=== PATIENT | female | born 1950 | race African-American/Black ===

== ENCOUNTER 2016-12-06 01:05 | Emergency (ER) | payer MEDICARE ==
[~2016-12-06] VITALS: Ht 175.3 cm; Wt 90.0 kg
[2016-12-06] MEDS ORDERED: FLEXERIL PO (02:25)
[2016-12-06] MEDS ORDERED: ULTRAM50 M1 PO (02:25)
[2016-12-06 02:50] VITALS: BP 164/95
== END 2016-12-06 02:50 | disposition home or self-care (01) ==
LOC: ED 01:05
DX: M19.041 Primary osteoarthritis, right hand (principal); M79.601 Pain in right arm; M25.431 Effusion, right wrist

== ENCOUNTER 2018-05-29 03:02 | Emergency (ER) | payer MEDICARE ==
[~2018-05-29] VITALS: Ht 175.3 cm; Wt 83.6 kg
[~2018-05-29 03:02] MED LIST: CYCLOBENZAPRINE10 MG PO; FISH OIL1000 MG PO; FLEXERIL PO; GLUCOSAMI12 PO; LASIX 40 MG TAB40 MG PO; LOSARTAN POT100 MG PO; MOBIC7.5 M1 PO; OXYBUTYNIN5 M1 PO; TRAMADOL HCL50 MG PO; ULTRAM50 M1 PO; VITAMIN B-12100 MCG PO; VOLTAREN1%GEL TOP
[2018-05-29] MEDS ORDERED: LORTAB 1010 MG PO (03:59)
[2018-05-29 04:15] VITALS: BP 156/86
== END 2018-05-29 04:17 | disposition home or self-care (01) ==
LOC: ED 03:02
DX: M76.9 Unspecified enthesopathy, lower limb, excluding foot (principal); I10 Essential (primary) hypertension; F17.210 Nicotine dependence, cigarettes, uncomplicated; Z96.653 Presence of artificial knee joint, bilateral

== ENCOUNTER 2019-11-17 06:36 | Day surgery (SDC) | payer MEDICARE ==
[~2019-11-17] VITALS: Ht 175.3 cm; Wt 92.5 kg
[~2019-11-17 06:36] MED LIST changes: +BUSPIRONE5 MG PO; +LORTAB 1010 MG PO; +METHOCARBAMOL500 MG PO; +MULTI VIT PO; +MULTIVITAMIN PL1 CHW PO; +NORVASC5 M1 PO; +POTASSIUM CHLO10 MEQ PO; +PROAIR DIG108 MCG/AC IN
[2019-11-17 09:19] VITALS: BP 131/81
== END 2019-11-17 09:38 | disposition home or self-care (01) ==
LOC: ENDO 06:36 → ORM 09:30 → ENDO 09:30
PROVIDERS: ATTEND Surgery
PROC: 0DBH8ZX Excision of Cecum, Via Natural or Artificial Opening Endoscopic, Diagnostic (ICD-10-PCS; principal; 2019-11-17)
PROC: 0DBL8ZX Excision of Transverse Colon, Via Natural or Artificial Opening Endoscopic, Diagnostic (ICD-10-PCS; 2019-11-17)
DX: D12.3 Benign neoplasm of transverse colon (principal); K50.10 Crohn's disease of large intestine without complications; K64.8 Other hemorrhoids; I10 Essential (primary) hypertension; F17.290 Nicotine dependence, other tobacco product, uncomplicated; Z80.9 Family history of malignant neoplasm, unspecified; Z11.59 Encounter for screening for other viral diseases

== ENCOUNTER 2020-03-05 14:34 | Emergency (ER) | payer MEDICARE ==
[~2020-03-05] VITALS: Ht 175.3 cm; Wt 92.0 kg
[2020-03-05 15:08] LABS: URINE BILIRUBIN - DIPSTICK NEGATIVE (NEGATIVE); URINE BLOOD DIPSTICK NEGATIVE (NEGATIVE); URINE COLOR YELLOW; URINE GLUCOSE - DIPSTICK NEGATIVE (NEGATIVE); URINE KETONE NEGATIVE (NEGATIVE); URINE NITRITE - DIPSTICK NEGATIVE (Negative); URINE PH 7.5 (4.5-8.0); URINE PROTEIN - DIPSTICK TRACE mg/dL (NEG-TRACE); URINE UROBILINOGEN - DIPSTICK 0.2 E.U./dL (0.2)
[2020-03-05 15:14] LABS: URINE BACTERIA FEW hpf; URINE LEUK ESTERASE SMALL (NEGATIVE); URINE RBC 0-2 RBC/hpf (0-5); URINE SQUAMOUS EPITHELIAL CELL FEW EPI/hpf (0-FEW)
[2020-03-05 15:22] LABS: HEMATOCRIT 35.6 % (37.0-47.0); HEMOGLOBIN 11.7 g/dl (12.0-16.0); IMMATURE GRANULOCYTES 0.2 % (0.0-5.0); MEAN CELL VOLUME 93.4 fL CALC (80.0-100.0); MEAN CORPUSCULAR HGB 30.7 pG CALC (26.0-32.0); MEAN CORPUSCULAR HGB CONC 32.9 g/dL CAL (32.0-36.0); NEUT# 1.58 thou/uL (2.00-7.15); RED BLOOD COUNT 3.81 mill/uL (4.20-5.60); RED CELL DISTRI WIDTH 13.6 % (11.5-15.5)
[2020-03-05 15:45] LABS: ALBUMIN 4.1 g/dL (3.2-5.0); ALKALINE PHOSPHATASE 72 u/l (38-126); BILIRUBIN, TOTAL 0.4 mg/dL (0.0-1.4); BUN 15 mg/dL (8-23); BUN/CREATININE RATIO 12 (12-20 (CALC)); CARBON DIOXIDE 32 mmol/l (22-30); CHLORIDE 102 mmol/l (95-108); CREATININE 1.3 mg/dL (0.5-1.0); GFR 41 ML/MIN (>=60 (CALC)); GFR FOR AFR.AMER. 49 ML/MIN (>=60 (CALC)); LIPASE 120 u/l (23-300); SGOT/AST 23 u/l (9-36); SODIUM 139 mmol/l (137-146); TOTAL PROTEIN 7.6 g/dL (6.3-8.2)
[2020-03-05 15:54] LABS: ANION GAP 10 (6-22 (CALC)); POTASSIUM 4.6 mmol/l (3.5-5.1)
[2020-03-05 17:14] VITALS: BP 129/87
[2020-03-05] MEDS ORDERED: KEFLEX500 M1 PO (17:16)
== END 2020-03-05 17:25 | disposition home or self-care (01) ==
LOC: ED 14:34
DX: R07.89 Other chest pain (principal); L29.9 Pruritus, unspecified; I10 Essential (primary) hypertension

== ENCOUNTER 2021-12-17 22:04 | Emergency (ER) | payer MEDICARE ==
[~2021-12-17] VITALS: Ht 175.3 cm; Wt 103.0 kg
[~2021-12-17 22:04] MED LIST changes: +B121000 MC1 PO; +BACLOFEN20 MG PO; +COZAAR100 MG PO; +KEFLEX500 M1 PO
[2021-12-17 22:13] VITALS: BP 135/85
[2021-12-17 22:33] VITALS: BP 130/87
[2021-12-17 22:49] LABS: HEMATOCRIT 35.6 % (37.0-47.0); HEMOGLOBIN 11.6 g/dl (12.0-16.0); IMMATURE GRANULOCYTES 0.2 % (0.0-5.0); MEAN CELL VOLUME 94.7 fL CALC (80.0-100.0); MEAN CORPUSCULAR HGB 30.9 pG CALC (26.0-32.0); MEAN CORPUSCULAR HGB CONC 32.6 g/dL CAL (32.0-36.0); NEUT# 3.87 thou/uL (2.00-7.15); RED BLOOD COUNT 3.76 mill/uL (4.20-5.60); RED CELL DISTRI WIDTH 13.5 % (11.5-15.5)
[2021-12-17 23:01] VITALS: BP 96/79
[2021-12-17 23:07] LABS: ALBUMIN 4.4 g/dL (3.2-5.0); ALKALINE PHOSPHATASE 98 u/l (38-126); ANION GAP 10 (6-22 (CALC)); BILIRUBIN, TOTAL 0.4 mg/dL (0.0-1.4); BUN 13 mg/dL (8-23); BUN/CREATININE RATIO 10 (12-20 (CALC)); CARBON DIOXIDE 30 mmol/l (22-30); CHLORIDE 104 mmol/l (95-108); CREATININE 1.4 mg/dL (0.5-1.0); GFR FOR AFR.AMER. 45 ML/MIN (>=60 (CALC)); GFR OTHER RACES 37 ML/MIN (>=60 (CALC)); POTASSIUM 4.1 mmol/l (3.5-5.1); SGOT/AST 42 u/l (9-36); SODIUM 139 mmol/l (137-146); TOTAL PROTEIN 8.5 g/dL (6.3-8.2)
[2021-12-17 23:19] LABS: MYOGLOBIN 144 ng/mL (0 - 62)
[2021-12-18 01:10] LABS: URINE BILIRUBIN - DIPSTICK NEGATIVE (NEGATIVE); URINE BLOOD DIPSTICK NEGATIVE (NEGATIVE); URINE COLOR YELLOW; URINE GLUCOSE - DIPSTICK NEGATIVE (NEGATIVE); URINE KETONE NEGATIVE (NEGATIVE); URINE LEUK ESTERASE NEGATIVE (NEGATIVE); URINE PROTEIN - DIPSTICK NEGATIVE (NEG-TRACE); URINE SPECIFIC GRAVITY <=1.005; URINE UROBILINOGEN - DIPSTICK 0.2 E.U./dL (0.2)
[2021-12-18 01:16] LABS: URINE NITRITE - DIPSTICK NEGATIVE (Negative)
[2021-12-18 01:30] VITALS: BP 96/79
== END 2021-12-18 01:45 | disposition home or self-care (01) ==
LOC: ED 22:04
PROVIDERS: Family Medicine
DX: N17.9 Acute kidney failure, unspecified (principal); R42 Dizziness and giddiness; I10 Essential (primary) hypertension; Z20.822 Contact with and (suspected) exposure to COVID-19

== ENCOUNTER 2022-05-25 01:23 | Emergency (ER) | payer MEDICARE ==
[~2022-05-25] VITALS: Ht 175.3 cm; Wt 103.0 kg
[2022-05-25] VITALS (8 sets, daily range): BP systolic 134–177; BP diastolic 96–119
[~2022-05-25 01:23] MED LIST changes: +BUSPAR10 M1 PO; -BUSPIRONE5 MG PO
[2022-05-25 02:27] LABS: ALBUMIN 4.2 g/dL (3.2-5.0); ALKALINE PHOSPHATASE 84 u/l (38-126); AMYLASE 68 u/l (30-110); BUN 16 mg/dL (8-23); BUN/CREATININE RATIO 14 (12-20 (CALC)); CARBON DIOXIDE 30 mmol/l (22-30); CHLORIDE 105 mmol/l (95-108); CREATININE 1.2 mg/dL (0.5-1.0); GFR FOR AFR.AMER. 54 ML/MIN (>=60 (CALC)); GFR OTHER RACES 44 ML/MIN (>=60 (CALC)); LIPASE 155 u/l (23-300); SGOT/AST 37 u/l (9-36); SODIUM 142 mmol/l (137-146); TOTAL PROTEIN 7.8 g/dL (6.3-8.2)
[2022-05-25 02:31] LABS: BASO% 0.2 % (0-3); EOS% 2.7 % (0-8); HEMATOCRIT 34.9 % (37.0-47.0); HEMOGLOBIN 11.9 g/dl (12.0-16.0); LYMPH% 59.2 % (15-41); MEAN CELL VOLUME 92.3 fL CALC (80.0-100.0); MEAN CORPUSCULAR HGB 31.5 pG CALC (26.0-32.0); MEAN CORPUSCULAR HGB CONC 34.1 g/dL CAL (32.0-36.0); MONO% 9.2 % (2-13); NEUT# 1.49 thou/uL (2.00-7.15); NEUT% 28.7 % (42-76); RED BLOOD COUNT 3.78 mill/uL (4.20-5.60); RED CELL DISTRI WIDTH 13.3 % (11.5-15.5)
[2022-05-25 02:32] LABS: ANION GAP 11 (6-22 (CALC)); BILIRUBIN, TOTAL 0.2 mg/dL (0.0-1.4); POTASSIUM 3.7 mmol/l (3.5-5.1)
[2022-05-25] MEDS ORDERED: GABAPENTIN100 MG PO (02:52)
[2022-05-25] MEDS ORDERED: MAGNESIUM500 M1 PO (02:53)
[2022-05-25] MEDS ORDERED: LIPITOR10 M1 PO (02:53)
[2022-05-25] MEDS ORDERED: CENTRUM WOMEN1 TAB PO (02:55)
[2022-05-25] MEDS ORDERED: D31000 UNI1 PO (02:56)
[2022-05-25] MEDS ORDERED: DILTIAZEM60 MG PO (02:59)
[2022-05-25] MEDS ORDERED: CYCLOBENZAPRINE10 MG PO (02:59)
[2022-05-25 03:33] LABS: URINE BILIRUBIN - DIPSTICK NEGATIVE (NEGATIVE); URINE BLOOD DIPSTICK NEGATIVE (NEGATIVE); URINE COLOR YELLOW; URINE GLUCOSE - DIPSTICK NEGATIVE (NEGATIVE); URINE KETONE NEGATIVE (NEGATIVE); URINE LEUK ESTERASE TRACE (NEGATIVE); URINE PROTEIN - DIPSTICK NEGATIVE (NEG-TRACE); URINE UROBILINOGEN - DIPSTICK 0.2 E.U./dL (0.2)
[2022-05-25 03:37] LABS: URINE NITRITE - DIPSTICK NEGATIVE (Negative)
[2022-05-25] MEDS ORDERED: ONDANSETRON4 MG PO (04:54)
[2022-05-25] MEDS ORDERED: ULTRAM50 MG PO (04:54)
[2022-05-25] MEDS ORDERED: EQ OMEPRAZOLE20 MG PO (04:54)
== END 2022-05-25 05:06 | disposition home or self-care (01) ==
LOC: ED 01:23
PROVIDERS: Emergency Medicine
DX: K29.70 Gastritis, unspecified, without bleeding (principal); I10 Essential (primary) hypertension; K21.9 Gastro-esophageal reflux disease without esophagitis; Z20.822 Contact with and (suspected) exposure to COVID-19
CPT/HCPCS: Q9967

== ENCOUNTER 2022-12-13 13:45 | Emergency (ER) | payer MEDICARE ==
[~2022-12-13] VITALS: Ht 175.3 cm; Wt 86.0 kg
[~2022-12-13 13:45] MED LIST changes: +CENTRUM WOMEN1 TAB PO; +D31000 UNI1 PO; +DILTIAZEM60 MG PO; +EQ OMEPRAZOLE20 MG PO; +GABAPENTIN100 MG PO; +LIPITOR10 M1 PO; +MAGNESIUM500 M1 PO; +METRONIDAZOLE500 MG PO; +ONDANSETRON4 MG PO; +ULTRAM50 MG PO
[2022-12-13] MEDS ORDERED: NAPROXEN500 MG PO (15:25)
[2022-12-13] MEDS ORDERED: METHOCARBAMOL500 MG PO (15:25)
[2022-12-13 16:15] VITALS: BP 167/108
== END 2022-12-13 16:15 | disposition home or self-care (01) ==
LOC: ED 13:45
DX: S70.11XA Contusion of right thigh, initial encounter (principal); S50.01XA Contusion of right elbow, initial encounter; I10 Essential (primary) hypertension; W01.0XXA Fall on same level from slipping, tripping and stumbling without subsequent striking against object, initial encounter; Z96.653 Presence of artificial knee joint, bilateral; Z96.641 Presence of right artificial hip joint

== ENCOUNTER 2023-05-15 21:58 | Emergency (ER) | payer MEDICARE ==
[~2023-05-15] VITALS: Ht 175.3 cm; Wt 99.0 kg
[~2023-05-15 21:58] MED LIST changes: +NAPROXEN500 MG PO
[2023-05-15] MEDS ORDERED: POLYMYXIN B SUL1 SOL OD ×2 (22:29→22:42)
[2023-05-15] MEDS ORDERED: LISINOPRIL20 M1 PO (22:39)
[2023-05-15] MEDS ORDERED: METFORMIN HCL500 M1 PO (22:39)
[2023-05-15] MEDS ORDERED: ATORVASTATIN CA10 MG PO (22:40)
[2023-05-15] MEDS ORDERED: OMEPRAZOLE DR40 MG PO (22:41)
[2023-05-15 23:15] VITALS: BP 135/87
== END 2023-05-15 23:15 | disposition home or self-care (01) ==
LOC: ED 21:58
DX: H10.11 Acute atopic conjunctivitis, right eye (principal); I10 Essential (primary) hypertension

== ENCOUNTER 2023-07-04 16:16 | Observation (INO) | payer MEDICARE ==
[~2023-07-04] VITALS: Ht 175.3 cm; Wt 95.2 kg
[~2023-07-04 16:16] MED LIST changes: +ATORVASTATIN CA10 MG PO; +LISINOPRIL20 M1 PO; +METFORMIN HCL500 M1 PO; +OMEPRAZOLE DR40 MG PO; +POLYMYXIN B SUL1 SOL OD
--- NOTE | 2023-07-04 16:16 | NUR ---
PATIENT ARRIVED TO ER VIA EMS. PATIENT AWAKE, ALERT AND STABLE. NO DISTRESS NOTED. PHYSICIAN AT BEDSIDE.
[2023-07-04] MEDS ORDERED: SODIUM CHLORIDE 0.9% 1,000 ML IV ONE (16:25)
[2023-07-04 16:45] LABS: BASO% 0.2 % (0-3); HEMATOCRIT 32.7 % (37.0-47.0); HEMOGLOBIN 10.8 g/dl (12.0-16.0); IMMATURE GRANULOCYTES 0.2 % (0.0-5.0); LYMPH% 38.5 % (15-41); MEAN CELL VOLUME 92.9 fL CALC (80.0-100.0); MEAN CORPUSCULAR HGB 30.7 pG CALC (26.0-32.0); MONO% 10.2 % (2-13); NEUT# 2.88 thou/uL (2.00-7.15); NEUT% 49.9 % (42-76); RED BLOOD COUNT 3.52 mill/uL (4.20-5.60); RED CELL DISTRI WIDTH 13.2 % (11.5-15.5)
--- NOTE | 2023-07-04 16:52 | NUR ---
IN ROOM TO START I/V FLUIDS PER EMAR, PT VSS, NAD NOTED, CALL LIGHT IN REACH, FAMILY AT BEDSIDE.
[2023-07-04 17:02] LABS: ALKALINE PHOSPHATASE 86 u/l (38-126); ANION GAP 9 (6-22 (CALC)); BILIRUBIN, TOTAL 0.5 mg/dL (0.02-1.3); BUN 14 mg/dL (8-23); CARBON DIOXIDE 29 mmol/l (22-30); CHLORIDE 106 mmol/l (95-108); GFR FOR AFR.AMER. 28 ML/MIN (>=60 (CALC)); GFR OTHER RACES 23 ML/MIN (>=60 (CALC)); POTASSIUM 3.4 mmol/l (3.5-5.1); SGOT/AST 28 u/l (9-36); SODIUM 140 mmol/l (137-146); TOTAL PROTEIN 7.1 g/dL (6.3-8.2)
[2023-07-04 17:06] LABS: BUN/CREATININE RATIO 7 (12-20 (CALC)); CREATININE 2.1 mg/dL (0.5-1.0)
--- NOTE | 2023-07-04 18:00 | NUR ---
Reassessment of patient completed. No distress noted. VSS, VOICED NO NEEDS AT THIS TIME.
[2023-07-04 18:25] LABS: URINE BILIRUBIN - DIPSTICK Negative (NEGATIVE); URINE BLOOD DIPSTICK Negative (NEGATIVE); URINE GLUCOSE - DIPSTICK Negative (NEGATIVE); URINE KETONE Negative (NEGATIVE); URINE NITRITE - DIPSTICK Negative (Negative); URINE PROTEIN - DIPSTICK 30 mg/dL (NEG-TRACE); URINE SPECIFIC GRAVITY 1.015; URINE UROBILINOGEN - DIPSTICK 0.2 E.U./dL (0.2)
[2023-07-04 18:26] LABS: URINE COLOR Dark yellow; URINE LEUK ESTERASE Small (NEGATIVE)
[2023-07-04 18:33] LABS: URINE BACTERIA FEW hpf; URINE HYALINE CAST FEW lpf (NONE-RARE)
[2023-07-04] MEDS ORDERED: ACETAMINOPHEN 325 MG/TAB PO PRN (18:45)
[2023-07-04] MEDS ORDERED: MAGNESIUM HYDROXIDE 30 ML UDC PO PRN (18:45)
[2023-07-04] MEDS ORDERED: SODIUM CHLORIDE 0.9% 1,000 ML IV PRN (18:45)
[2023-07-04] MEDS ORDERED: BACLOFEN20 MG PO (18:48)
[2023-07-04] MEDS ORDERED: LASIX 20 MG TAB20 MG PO (18:49)
[2023-07-04] MEDS ORDERED: OXYBUTYNIN CHLOR5 M2 PO (18:50)
[2023-07-04] MEDS ORDERED: DILTIAZEM HCL120 MG PO (18:51)
[2023-07-04] MEDS ORDERED: GABAPENTIN300 M2 PO (18:52)
[2023-07-04] MEDS ORDERED: POT CHLORIDE10 ME5 PO (18:53)
--- NOTE | 2023-07-04 19:00 | NUR ---
REPORT RECEIVED FROM BETHANIE MCHUGH AND CARE RESUMED BY THIS NURSE AT THIS TIME. PT AWAITING A RM ASSIGNMENT AND ADMISSION TO MED SURG. CALL LIGHT WITHIN REACH.
--- NOTE | 2023-07-04 19:13 | NUR ---
REPORT GIVEN TO ABSTRACT WRITER, MEAL PROVIDED TO PT, PT VSS, NAD NOTED, CALL LIGHT IN REACH.
[2023-07-04 20:00] VITALS: BP 115/71
--- NOTE | 2023-07-04 20:21 | NUR ---
PT RESTING IN RM AWAITING ADMISSION TO MED SURG. CALL LIGHT WITHIN REACH AND PT HAS NO NEEDS OR CONCERNS.
[2023-07-04 20:31] VITALS: BP 121/76
[2023-07-04 21:00] VITALS: BP 134/92
[2023-07-04] MEDS ORDERED: ENOXAPARIN SODIUM 40 MG/0.4 ML SYR SC SCH (21:00)
[2023-07-04 21:30] VITALS: BP 115/81
--- NOTE | 2023-07-04 21:41 | NUR ---
REPORT GIVEN TO KELLIE MCHUHG AT THIS TIME. PT AWAITING TRANSPORT TO [facility] ON MED SURG. CALL LIGHT WITHIN REACH.
[2023-07-04 22:00] VITALS: BP 132/83
--- NOTE | 2023-07-04 22:43 | NUR ---
Admission Note Report Given to: KELLIE MCHUGH Transported by: X Wheelchair Stretcher Transported with: X Nurse Transporter X Patent IV O2 X Diabetes Territory Manager Location: ICU X [facility]
--- NOTE | 2023-07-04 22:50 | NUR ---
PT ARRIVED FROM THE ER TO [facility] IN WHEELCHAIR. PT ABLE TO AMBULATE WITHOUT ANY ISSUES. NO DISTRESS NOTED DURING ASSESSMENT. VS WNL ON RA. IV SITE CHEKCED AND FLUSHED. INSTRUCTIONS GIVEN ON HOW TO USE CALL LIGHT AND WITHIN REACH. PLAN OF CARE EXPLAINED.
[2023-07-04 23:20] VITALS: BP 136/65
--- NOTE | 2023-07-05 01:00 | NUR ---
PT RESTING NO DISTRESS NOTED ON EXAM. CALL LIGHT WITHIN REACH. PLAN OF CARE ONGOING.
--- NOTE | 2023-07-05 04:36 | NUR ---
PT SLEEPING NO DISTRESS NOTED ON EXAM. CALL LIGHT WITHIN REACH. PLAN OF CARE ONGOING.
[2023-07-05 04:45] LABS: BASO% 0.3 % (0-3); EOS% 1.7 % (0-8); HEMATOCRIT 30.8 % (37.0-47.0); HEMOGLOBIN 10.3 g/dl (12.0-16.0); LYMPH% 46.1 % (15-41); MEAN CELL VOLUME 92.8 fL CALC (80.0-100.0); MEAN CORPUSCULAR HGB CONC 33.4 g/dL CAL (32.0-36.0); MONO% 8.8 % (2-13); NEUT# 2.59 thou/uL (2.00-7.15); NEUT% 43.1 % (42-76); RED BLOOD COUNT 3.32 mill/uL (4.20-5.60); RED CELL DISTRI WIDTH 13.3 % (11.5-15.5)
[2023-07-05 04:52] VITALS: BP 123/66
[2023-07-05 04:54] LABS: CREATININE 1.2 mg/dL (0.5-1.0); MAGNESIUM 1.8 mg/dL (1.6-2.3); POTASSIUM 3.6 mmol/l (3.5-5.1)
[2023-07-05 07:20] VITALS: BP 119/77
--- NOTE | 2023-07-05 08:00 | NUR ---
pt awake sitting at the side of the bed; no apparent distress noted; pt offers no complaints; assessment completed at this time; pt alert and oriented; pt denies pain; no n/v noted; resp even and unlabored; lungs clear; skin color wnl; hr reg; strong pulses; no edema noted; tele monitor intact; abd soft with bs present; no bm noted per contract technical writer; no urine to inspect at this time; #18 ems patent to rac with ivf infusing without complication; no redness or edema noted at site; call light within reach; will continue to monitor
--- NOTE | 2023-07-05 10:38 | NUR ---
pt iv noted dislodged; became stuck under iv; catheter tip intact; will await MD rounds (questionable dc) prior to restarting;
[2023-07-05 10:44] VITALS: BP 158/84
[2023-07-05] MEDS ORDERED: OMNICEF300 MG PO (11:35)
--- NOTE | 2023-07-05 12:29 | NUR ---
awake sitting at the side of the bed eating dinner; awaiting discharge; offers no complaints; call light within reach; will continue to monitor
--- NOTE | 2023-07-05 12:58 | NUR ---
Discharge instructions given. Patient verbalizes understanding of same. Discharged in stable condition via Wheelchair to Home with family. All belongings sent with pt.
== END 2023-07-05 14:07 | disposition home or self-care (01) ==
LOC: ED 16:16 → ED-I 18:15 → ED 18:44 → MS2 18:45
PROVIDERS: Family Medicine; ADMIT Student in an Organized Health Care Education/Training Program; ATTEND Student in an Organized Health Care Education/Training Program
DX: I95.1 Orthostatic hypotension (principal); N30.00 Acute cystitis without hematuria; N17.9 Acute kidney failure, unspecified; E86.0 Dehydration; I10 Essential (primary) hypertension; E11.9 Type 2 diabetes mellitus without complications; Z79.84 Long term (current) use of oral hypoglycemic drugs; Z20.822 Contact with and (suspected) exposure to COVID-19
CPT/HCPCS: J1650